=== PATIENT | female | born 1955 | race African-American/Black ===

== ENCOUNTER 2020-09-29 16:58 | Emergency (ER) | payer MEDICAID ==
[~2020-09-29] VITALS: Ht 160 cm; Wt 75.0 kg
[2020-09-29 17:04] VITALS: Ht 160 cm; Wt 75.0 kg
[2020-09-29] MEDS ORDERED: NORVASC2.5 MG PO (17:14)
[2020-09-29] MEDS ORDERED: LIPITOR10 MG PO (17:15)
[2020-09-29] MEDS ORDERED: CALCIUM 600 +1 EAC3 PO (17:15)
[2020-09-29] MEDS ORDERED: COLACE100 MG PO (17:15)
[2020-09-29] MEDS ORDERED: CLARITIN 10 MG10 MG PO (17:15)
[2020-09-29] MEDS ORDERED: DEPAKOTE125 MG PO (17:16)
[2020-09-29] MEDS ORDERED: DEPAKOTE250 MG PO (17:16)
[2020-09-29] MEDS ORDERED: DEPAKOTE500 MG PO (17:16)
[2020-09-29] MEDS ORDERED: FOLATE0.4 MG PO (17:17)
[2020-09-29] MEDS ORDERED: FUROSEMIDE20 MG PO (17:17)
[2020-09-29] MEDS ORDERED: KLOR-CON M2020 MEQ PO (17:17)
[2020-09-29] MEDS ORDERED: LASIX40 MG PO (17:18)
[2020-09-29] MEDS ORDERED: LOPERAMIDE HCL2 MG PO (17:18)
[2020-09-29] MEDS ORDERED: PHILLIPS'400 MG/5 M PO (17:19)
[2020-09-29] MEDS ORDERED: NAMENDA10 MG PO (17:19)
[2020-09-29] MEDS ORDERED: VIC-FORTE CAPSUL1 MG PO (17:20)
[2020-09-29] MEDS ORDERED: HEMORRHOIDAL OI57 GM TP (17:20)
[2020-09-29] MEDS ORDERED: SENNA LAXATIVE8.6 MG PO (17:21)
[2020-09-29] MEDS ORDERED: SEROQUEL400 MG PO (17:22)
[2020-09-29] MEDS ORDERED: SEROQUEL200 MG PO (17:22)
[2020-09-29] MEDS ORDERED: ACETAMINOPHEN325 MG PO (17:23)
[2020-09-29] MEDS ORDERED: VITAMIN B-12250 MC3 PO (17:23)
[2020-09-29] MEDS ORDERED: ZOLOFT50 MG PO (17:23)
[2020-09-29] MEDS ORDERED: ZOFRAN4 MG PO (17:24)
[2020-09-29 17:28] LABS: BASOPHILS 0 % (0-2); EOSINOPHILS 1.3 % (0-7); HEMATOCRIT 27.4 % (36.0-48.0); HEMOGLOBIN 8.8 g/dL (12-16); IMMATURE GRANULOCYTES 0.3 % (0-5); LYMPHOCYTE ABS# 1.55 10x3/uL (1.18-3.74); LYMPHOCYTES 39.4 % (15-50); MCH 25.4 pg (26.0-34.0); MCHC 32.1 g/dL (31.0-37.0); MCV 79.2 fL (80.0-100.0); MEAN PLATELET VOLUME 9.7 fL (7.4-10.4); NEUTROPHIL ABS# 1.73 10x3/uL (1.56-6.13); PLATELET COUNT 85 10x3/uL (130-400); RBC 3.46 10x6/uL (4.00-5.40); RDW 14.6 % (11.5-14.5); WBC 3.9 10x3/uL (4.8-10.8)
[2020-09-29 17:31] LABS: PLATELET ESTIMATE DECREASED
[2020-09-29 17:53] LABS: ALBUMIN 1.9 g/dL (3.4-5.0); ALKALINE PHOSPHATASE 57 U/L (30-120); ALT (SGPT) 14 U/L (10-68); CARBON DIOXIDE 21.3 mmol/L (21.0-32.0); CHLORIDE - SERUM 111 mmol/L (98-107); CREATININE - SERUM 0.8 mg/dL (0.6-1.3); MAGNESIUM - SERUM 1.3 mg/dL (1.8-2.4); POTASSIUM - SERUM 3.1 mmol/L (3.5-5.1); PROTEIN - SERUM 4.1 g/dL (6.4-8.2); SODIUM 142 mmol/L (136-145); UREA NITROGEN 12 mg/dL (7-18); eGFR NON AFRICAN AMERICAN 77 mL/min (90-120)
[2020-09-29 18:03] LABS: BILIRUBIN - TOTAL 0.09 mg/dL (0.2-1.3); CALC OSMOLALITY 303 mosm/kg (275-300)
[2020-09-29 18:06] LABS: CALCIUM 5.5 mg/dL (8.5-10.1); GLUCOSE 475 mg/dL (74-106)
[2020-09-29 19:16] LABS: BILIRUBIN NEGATIVE (NEGATIVE); KETONE NEGATIVE (NEGATIVE); NITRITE NEGATIVE (NEGATIVE); UROBILINOGEN NORMAL mg/dL (< 2)
[2020-09-29 19:45] VITALS: BP 132/87
== END 2020-09-29 20:32 | disposition other institution (70) ==
LOC: D.ER 16:58
PROVIDERS: Family Medicine
DX: E11.65 Type 2 diabetes mellitus with hyperglycemia (principal)